=== PATIENT | male | born 1960 | race Caucasian/White ===

== ENCOUNTER 2019-04-15 03:35 | Emergency (ER) | payer OTHER ==
[~2019-04-15] VITALS: Ht 172.7 cm; Wt 84.2 kg
[~2019-04-15 03:35] MED LIST: ATOR10TA; LISI1TAB23
[2019-04-15] MEDS ORDERED: HYDROmorphone 1 MG/ML, 1ML INJ ONE ×2 (03:52→04:33)
[2019-04-15] MEDS ORDERED: HYDROmorphone 1 MG/ML, 1ML INJ IM ONE (04:00)
--- NOTE | 2019-04-15 04:16 | NUR ---
PT RETURNED FROM XRAY. MOVED TO TRAUMA 2.
[2019-04-15] MEDS ORDERED: HYDROmorphone 1 MG/ML, 1ML INJ IV ONE (04:30)
[2019-04-15] MEDS ORDERED: SODIUM CHLORIDE FLUSH 10ML SYR IVF ONE (04:30)
[2019-04-15] MEDS ORDERED: PROPOFOL 10 MG/ML, 20ML ONE (04:32)
[2019-04-15] MEDS ORDERED: PROPOFOL 10 MG/ML, 20ML IVPush ONE (05:00)
[2019-04-15 06:00] VITALS: BP 108/63
--- NOTE | 2019-04-15 06:13 | NUR ---
PT HAD SHOULDER REDUTION WITH SEDATION, PT AWOKED FROM SEDATION WITH DEREASED RIGHT SHOULDER PAIN FROM 10/10 TO 2/10 PAIN. PT STATED 'HIS ARM FEELS SO MUCH BETTER NOW" PT AMBULATED WITHOUT DIFFIULTY AROUND 0545 AND AMBULATED TO DISCHARGE DESK WITHOUT COMPLAINTS. PT STATED "SHE IS DRIVING HOME AND WILL CARE FOR PT AT HOME" PT DENIED ANY ADDITIONAL WANTS OR NEEDS AT DISCHARGE.
== END 2019-04-15 06:05 ==
LOC: ED 04:46
DX: S43.004A Unspecified dislocation of right shoulder joint, initial encounter (principal); W01.0XXA Fall on same level from slipping, tripping and stumbling without subsequent striking against object, initial encounter; Y93.89 Activity, other specified; Y92.098 Other place in other non-institutional residence as the place of occurrence of the external cause; Y99.8 Other external cause status
CPT/HCPCS: 23650; 73020; 73030; 96372; 96374; 96375; 99285; J1170; J2704